=== PATIENT | male | born 2000 | race Caucasian/White ===

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

== ENCOUNTER → 2021-04-02 | Day surgery (SDC) | payer BC, OTHER ==
[~2021-04-02] MED LIST: Lidocaine 1% PF 5 ML VIAL FS PRN; Lidocaine 1% PF 5 ML VIAL ONE; cefTRIAXone\\ROCEPHIN 1 GM VIAL IM SCH
[2021-04-02 15:25] VITALS: BP 106/70; TEMP 98.7
== END ==
LOC: BUR/OP 13:33
PROVIDERS: ATTEND Physician Assistant
DX: J40 Bronchitis, not specified as acute or chronic (principal); R50.9 Fever, unspecified; Q04.3 Other reduction deformities of brain
CPT/HCPCS: 96372; J0696

== ENCOUNTER → 2021-04-03 | Day surgery (SDC) | payer BC, OTHER ==
[~2021-04-03] MED LIST changes: -Lidocaine 1% PF 5 ML VIAL FS PRN
[2021-04-03 17:38] VITALS: BP 138/76; TEMP 98.1
== END ==
LOC: BUR/OP 14:46
PROVIDERS: ATTEND Physician Assistant
DX: J40 Bronchitis, not specified as acute or chronic (principal); R50.9 Fever, unspecified; Q04.3 Other reduction deformities of brain
CPT/HCPCS: 96372; J0696

== ENCOUNTER 2022-06-11 14:10 | Emergency (ER) | payer BC, OTHER ==
[2022-06-11] MEDS ORDERED: Ondansetron ODT 4 MG TAB ONE (14:31)
== END 2022-06-11 14:50 | disposition home or self-care (01) ==
LOC: BURERS 14:10
DX: R50.9 Fever, unspecified (principal); R11.2 Nausea with vomiting, unspecified
CPT/HCPCS: 99283; Q0162